=== PATIENT | female | born 1945 | race Caucasian/White ===

== ENCOUNTER 2016-11-02 08:21 | Day surgery (SDC) | payer MEDICARE, OTHER ==
[2016-11-02] MEDS ORDERED: LIDOCAINE 2% MDV (20MG/ML) 20ML VIAL IV ONE (14:00)
[2016-11-02] MEDS ORDERED: PROPOFOL 10 MG/ML VIAL IV ONE (14:00)
[2016-11-02] MEDS ORDERED: MIDAZOLAM HCL 2MG/2ML VIAL IV ONE (14:00)
--- NOTE | 2016-11-03 17:08 | Operative Note ---
DATE OF SURGERY: 11/02/2016 OPERATION: COLONOSCOPY with cold forceps polypectomy. PREOPERATIVE DIAGNOSIS: Screening. POSTOPERATIVE DIAGNOSES: 1. Transverse colon polyp. 2. Sigmoid diverticulosis. PROCEDURE: After informed consent was obtained from the patient, she was placed in the left lateral decubitus position in the endoscopy suite, sedated and monitored by the department of anesthesia. Digital rectal exam was unremarkable. A well-lubricated [id number] colonoscope was inserted into the rectum and advanced through a moderately to severely tortuous sigmoid colon with [id number] diverticular changes. The endoscope was advanced to the cecum. Preparation quality was good. The cecum, ileocecal valve, appendiceal orifice, and ascending colon were unremarkable. In the distal transverse colon there was a thinly pedunculated polyp which was removed in piecemeal fashion with a cold forceps. Minimal bleeding was noted at the site. The remainder of the transverse colon and descending colon were unremarkable. In the sigmoid colon, there were diverticular changes noted. No polyps, mass lesions, or inflammation was seen. The rectum was unremarkable in forward and in J-turn views. The endoscope was straightened, the rectal ampulla deflated, and the endoscope was removed. ESTIMATED BLOOD LOSS: Minimal. SPECIMENS: Transverse colon polyp. RECOMMENDATIONS: The patient should follow a high-fiber diet and use a fiber supplement such as Citrucel or Benefiber. In addition, I would recommend an upper endoscopy be performed given her chronic significant acid reflux, especially in light of the fact that she has what sounds like maybe nocturnal aspiration symptoms. This will be scheduled in the near future. As always, thank you for allowing me to participate in the healthcare of your patients. CC: Dr. Hardeep PRABHAKAR
== END 2016-11-02 10:57 | disposition home or self-care (01) ==
LOC: HOP 08:21
PROVIDERS: ATTEND Internal Medicine Gastroenterology
DX: Z12.11 Encounter for screening for malignant neoplasm of colon (principal); K63.5 Polyp of colon; K57.30 Diverticulosis of large intestine without perforation or abscess without bleeding; E03.9 Hypothyroidism, unspecified

== ENCOUNTER 2016-11-30 10:40 | Day surgery (SDC) | payer MEDICARE, OTHER ==
[2016-11-30] MEDS ORDERED: LIDOCAINE 2% MDV (20MG/ML) 20ML VIAL IV ONE (14:00)
[2016-11-30] MEDS ORDERED: PROPOFOL 10 MG/ML VIAL IV ONE (14:00)
[2016-11-30] MEDS ORDERED: FENTANYL PF 100MCG/2ML VIAL IV ONE (14:00)
--- NOTE | 2016-12-04 09:45 | Operative Note ---
DATE OF SURGERY: 11/30/2016 Surgeon: Luis Lundberg DO Referring physician: Hardeep Lauren DO PREOPERATIVE DIAGNOSIS: Chronic heartburn symptoms and questionable nocturnal aspiration. POSTOPERATIVE DIAGNOSES: 1. Ulcerative esophagitis. 2. Hiatal hernia. OPERATION: EGD WITH BIOPSY PROCEDURE: After informed consent was obtained with the patient, she was placed in the left lateral decubitus position in the endoscopy suite, sedated and monitored by the Department of Anesthesia. A well-lubricated GIF 180 gastroscope was placed in the posterior oropharynx under direct visualization past the proximal esophagus. The endoscope was advanced to the proximal, mid, and distal esophagus. The GE junction demonstrated ulcerative changes and irregularity of the tissue at the squamocolumnar border. There were four folds at least involved with the ulcerative changes. There was no obvious mass, but there was some edema and narrowing. The remainder of the esophagus was unremarkable. A small hiatal hernia was noted subdiaphragmatic. The stomach demonstrated normal distensibility, normal rugal folds. ____antrum pylorus, as well as the duodenal bulb and sweep were unremarkable. J-turn views of the proximal stomach revealed a small hiatal hernia, but no other abnormalities. The endoscope was straightened. Biopsies were obtained from the GE junction, in particular in the area of the ulcerated mucosa. There was a small amount of oozing that occurred. The area was rinsed, fluid evacuated, blood evacuated. There was no persistent bleeding noted. The remainder of the esophagus was unremarkable. RECOMMENDATIONS: The patient should be on a twice a day PPI. I will repeat her upper endoscopy in 8 weeks to assess healing and will await tissue histology of tissue obtained, in particular, need to exclude the possibility of occult malignant tissue. As always, thank you for allowing me to participate in the care of your patient. CC: Dr. Luis PRABHAKAR
== END 2016-11-30 12:02 | disposition home or self-care (01) ==
LOC: HOP 10:40
PROVIDERS: ATTEND Internal Medicine Gastroenterology
DX: K22.70 Barrett's esophagus without dysplasia (principal); K21.9 Gastro-esophageal reflux disease without esophagitis; K22.10 Ulcer of esophagus without bleeding; K44.9 Diaphragmatic hernia without obstruction or gangrene; E78.00 Pure hypercholesterolemia, unspecified; E03.9 Hypothyroidism, unspecified

== ENCOUNTER 2017-02-01 08:10 | Day surgery (SDC) | payer MEDICARE, OTHER ==
[2017-02-01] MEDS ORDERED: MIDAZOLAM HCL 2MG/2ML VIAL IV ONE (14:00)
[2017-02-01] MEDS ORDERED: PROPOFOL 10 MG/ML VIAL IV ONE (14:00)
[2017-02-01] MEDS ORDERED: LIDOCAINE 2% MDV (20MG/ML) 20ML VIAL IV ONE (14:00)
--- NOTE | 2017-02-07 13:20 | Operative Note ---
DATE OF SURGERY: 02/01/2017 OPERATION: ESOPHAGOGASTRODUODENOSCOPY with photo. PREOPERATIVE DIAGNOSIS: Ulcerative esophagitis and Slaughter's. POSTOPERATIVE DIAGNOSES: 1. Slaughter's with resolved ulcerative changes. 2. Small hiatal hernia. PROCEDURE: After informed consent was obtained from the patient, she was placed in the left lateral decubitus position in the endoscopy suite, sedated and monitored by the department of anesthesia. A well-lubricated [id number] gastroscope was placed in the posterior oropharynx and under direct visualization passed to the proximal esophagus. The endoscope was advanced through the proximal, mid, and distal esophagus. The GE junction was irregular. No ulcers, erosions, strictures, varices, or mass lesions were seen. There was a small hiatal hernia. The remainder of the esophagus, gastric body, antrum, pylorus, duodenal bulb and sweep were unremarkable. J-turn views of the proximal stomach revealed a small hiatal hernia. No other abnormalities were identified. The endoscope was straightened and retracted back to the GE junction where again a small hiatal hernia was noted. The squamocolumnar border was irregular consistent with the prior findings of Slaughter's. The ulcerative changes which had been previously identified on her last endoscopy have resolved. The endoscope was then retracted through the remainder of the esophagus with no new abnormalities or irregularities identified. RECOMMENDATIONS: The patient can reduce her PPI to once daily. In addition, I will examine her left ear, as she appears to have pain and symptoms suggestive of perhaps a middle ear infection. As always, thank you for allowing me to participate in the healthcare of your patients. CC: Dr. Hardeep PRABHAKAR
== END 2017-02-01 11:10 | disposition home or self-care (01) ==
LOC: HOP 08:10
PROVIDERS: ATTEND Internal Medicine Gastroenterology
DX: K22.10 Ulcer of esophagus without bleeding (principal); K44.9 Diaphragmatic hernia without obstruction or gangrene; E03.9 Hypothyroidism, unspecified

== ENCOUNTER 2017-03-06 12:53 | Day surgery (SDC) | payer MEDICARE, OTHER ==
--- NOTE | 2017-03-08 11:00 | Operative Note ---
DATE OF SURGERY: 03/06/2017 PREOPERATIVE DIAGNOSIS: Hematuria. POSTOPERATIVE DIAGNOSIS: Hematuria. OPERATION: Cystoscopy. Indication: A 71-year-old female who presents for cystoscopic to complete her hematuria evaluation. PROCEDURE: Preop informed consent was obtained. Antibiotics were given. The patient was brought to the procedure room at [facility], placed in frog-leg position. The genitalia prepped and draped sterilely. Immediately seen, the patient has complete prolapse of the bladder with cystocele. The bladder was entered with the scope. No abnormalities mucosally were seen, and the ureteral orifices had normal appearance. The scope was then withdrawn. The procedure was terminated. The patient tolerated the procedure well. PLAN: The patient's workup is complete. No other significant abnormality was seen except for the cystocele, which she has been fully aware of. Does not desire treatment for and will follow up as needed in the future. CC: Dr. Hardeep PRABHAKAR
== END 2017-03-06 13:45 | disposition home or self-care (01) ==
LOC: HOP 12:53
PROVIDERS: ATTEND Urology
DX: R31.9 Hematuria, unspecified (principal); N81.10 Cystocele, unspecified
CPT/HCPCS: 76775

== ENCOUNTER 2017-08-10 12:07 | Emergency (ER) | payer MEDICARE, OTHER ==
--- NOTE | 2017-08-10 12:34 | Emergency Department Record ---
History of Present Illness - General Chief complaint: ENT Stated complaint: LT EAR PAIN Time Seen by Provider: 08/10/17 12:18 Source: Patient Mode of Arrival: Ambulatory Limitations: No limitations - History of Present Illness Initial comments: The patient is here due to L ear pain for 4 hours. She denies any cough, ST, runny nose or ear drainage. There is no hx of ear perforations or injuries. MD complaint: Ear pain Onset/Timin -: Hour(s) Location: L ear Severity: Moderate Severity scale (1-10): 5 Quality: Sharp, Stabbing Consistency: Constant Improves with: None Worsens with: Other Associated Symptoms: Other - Related Data Previous Rx's Medication Instructions Recorded Neomycin/Polymyxin B Sulf/Hc 3 drop AFFEAR QID #10 ml 08/10/17 [Cortisporin Otic] Allergies Allergy/AdvReac Type Severity Reaction Status Date / Time codeine Allergy ALTERED Verified 02/08/17 09:18 MENTAL STATUS Travel Screening - Travel/Exposure Within Last 30 Days Have you traveled within the last 30 days?: No - Travel/Exposure Within Last Year Have you traveled outside the [place] in the last year?: No - Additonal Travel Details Have you been exposed to anyone with a communicable illness?: No - Travel Symptoms Symptom Screening: None Review of Systems Constitutional: Denies: Chills, Fever Past Medical History - SOCIAL HISTORY Smoking Status: Never smoker Alcohol Use: None Drug Use: None - RESPIRATORY Hx Respiratory Disorders: No - CARDIOVASCULAR Hx Cardio Disorders: No - NEURO Hx Neuro Disorders: No - GI Hx GI Disorders: Yes Hx Reflux: Yes Hx Ulcer: Yes Hx of Polyps: Yes Comment:: barretts esophagus. - Hx Genitourinary Disorders: No - ENDOCRINE Hx Endocrine Disorders: Yes Hx Thyroid Disease: Yes - MUSCULOSKELETAL Hx Musculoskeletal Disorders: Yes Hx Arthritis: Yes - PSYCH Hx Psych Problems: No - HEMATOLOGY/ONCOLOGY Hx Hematology/Oncology Disorders: Yes Hx Cancer: Yes (melanoma-back) Hx Chemotherapy: No Hx Radiation Therapy: No Family Medical History Any Significant Family History?: Yes Hx Cancer: Grandparents Hx Heart Disease: Mother Hx HTN: Mother Physical Exam - General General Appearance: Alert, Cooperative, No acute distress - Head Head exam: Atraumatic, Normocephalic, Normal inspection - Eye Eye exam: Normal appearance, PERRL, EOMI - ENT ENT exam: Normal orophraynx. negative: Normal exam, TM's normal bilaterally ( The L TM is not visualized.) Ear exam: Normal external inspection, External canal tenderness (The L ear canal has mild erythema with a cerumen plug deep up against the TM.) Nasal Exam: Normal inspection Throat exam: Normal inspection. negative: Tonsillar erythema, Tonsillar exudate - Neck Neck exam: Normal inspection, Full ROM. negative: Lymphadenopathy, Meningismus , Tenderness Course Vital Signs 08/10/17 12:14 Temperature 97.6 F Pulse Rate [ 95 H Pulse Ox Probe] Respiratory 16 Rate Blood Pressure 162/93 [Left Arm] Pulse Ox 95 - Reevaluation(s) Reevaluation #1: I did explain to the patient that she appears to have a plug of cerumen up against the TM with erythema mildly to the canal. She is to use the ear drops and to see her PCP next week for recheck and to possibly have the canal flushed out. 08/10/17 12:43 Disposition Disposition: Discharge Clinical Impression: Otalgia of left ear Disposition: Home, Self-Care Condition: (2) Stable Instructions: Earache (ED) Additional Instructions: Please take Tylenol for pain and use the Cortisporin as directed. Please see Dr. Lauren next week for recheck and to flush the ear out when improved. Return to the ER for any worsening symptoms. Prescriptions: Neomycin/Polymyxin B Sulf/Hc [Cortisporin Otic] 3 drop AFFEAR QID #10 ml Forms: Patient Portal Access Time of Disposition: 12:34 Quality - Quality Measures Quality Measures: N/A - Blood Pressure Screening View Details: Yes Does Patient Have Any of the Following: No, Active Dx of HTN Blood Pressure Classification: Hypertensive Reading Systolic Measurement: 162 Diastolic Measurement: 93 Screening for High Blood Pressure: Patient Exclusion, Hx of HTN [[id number]]
== END 2017-08-10 12:40 | disposition home or self-care (01) ==
LOC: ER 12:07
DX: H92.02 Otalgia, left ear (principal); H61.22 Impacted cerumen, left ear
CPT/HCPCS: 99282

== ENCOUNTER 2018-04-08 05:15 | Emergency (ER) | payer MEDICARE, OTHER ==
[2018-04-08 05:29] LABS: URINE APPEARANCE CLEAR; URINE BILIRUBIN NEGATIVE (NEGATIVE); URINE BLOOD LARGE (NEGATIVE); URINE COLOR RED; URINE GLUCOSE (UA) NEGATIVE (NEGATIVE); URINE KETONE NEGATIVE (NEGATIVE); URINE LEUKOCYTE ESTERASE LARGE (NEGATIVE); URINE NITRITE NEGATIVE (NEGATIVE); URINE UROBILINOGEN 0.2 E.U./dL (0.20 - 1.00)
[2018-04-08 05:36] LABS: URINE BACTERIA 1+; URINE EPITHELIAL CELLS 0 - 2 (FEW); URINE RBC 21 - 35 (NONE SEEN); URINE WBC 21 - 35 (0-2/hpf)
[2018-04-08] MEDS ORDERED: NITROFURANTOIN MONO 100 MG CAPSULE PO ONE (05:42)
[2018-04-08] MEDS ORDERED: PHENAZOPYRIDINE HCL 95 MG TABLET PO ONE (05:45)
--- NOTE | 2018-04-08 05:45 | Emergency Department Record ---
History of Present Illness - General Chief complaint: Female Urogenital Problem Stated complaint: BLOOD IN URINE Time Seen by Provider: 04/08/18 05:37 Source: Patient Mode of Arrival: Ambulatory Limitations: No limitations - History of Present Illness Initial comments: The patient is here due to dysuria for 2 days. She did notice a small amount of blood in the urine today. There has been no fever, chills, AP, vomiting, or back pain. MD Complaint: Dysuria Onset/Timin -: Days(s) Quality: Burning Consistency: Constant Improves with: None Worsens with: None Associated Symptoms: Dysuria, Hematuria - Related Data Home Medications Medication Instructions Recorded Confirmed Last Taken Rosuvastatin Calcium 1 tab PO DAILY 04/08/18 04/08/18 Unknown Previous Rx's Medication Instructions Recorded Nitrofurantoin [place] [Macrobid] 100 mg PO BID #14 capsule 04/08/18 Phenazopyridine HCl [Pyridium] 100 mg PO TID #6 tablet 04/08/18 Allergies Allergy/AdvReac Type Severity Reaction Status Date / Time codeine Allergy ALTERED Verified 04/08/18 05:28 MENTAL STATUS Travel Screening - Travel/Exposure Within Last 30 Days Have you traveled within the last 30 days?: No - Travel/Exposure Within Last Year Have you traveled outside the [place] in the last year?: No - Additonal Travel Details Have you been exposed to anyone with a communicable illness?: No - Travel Symptoms Symptom Screening: None Review of Systems Constitutional: Denies: Chills, Fever Eyes: Denies: Eye discharge ENT: Denies: Congestion Respiratory: Denies: Cough, Dyspnea Cardiovascular: Denies: Chest pain Past Medical History - SOCIAL HISTORY Smoking Status: Never smoker Alcohol Use: Rare Drug Use: None - RESPIRATORY Hx Respiratory Disorders: No - CARDIOVASCULAR Hx Cardio Disorders: No - NEURO Hx Neuro Disorders: No - GI Hx GI Disorders: Yes Hx Reflux: Yes Hx Ulcer: Yes Hx of Polyps: Yes Comment:: barretts esophagus. - Hx Genitourinary Disorders: No - ENDOCRINE Hx Endocrine Disorders: Yes Hx Thyroid Disease: Yes - MUSCULOSKELETAL Hx Musculoskeletal Disorders: Yes Hx Arthritis: Yes - PSYCH Hx Psych Problems: No - HEMATOLOGY/ONCOLOGY Hx Hematology/Oncology Disorders: Yes Hx Cancer: Yes (melanoma-back) Hx Chemotherapy: No Hx Radiation Therapy: No Family Medical History Any Significant Family History?: No Hx Cancer: Grandparents Hx Heart Disease: Mother Hx HTN: Mother Physical Exam - General General Appearance: Alert, Oriented x3, Cooperative, No acute distress - Head Head exam: Atraumatic, Normocephalic, Normal inspection - Eye Eye exam: Normal appearance, PERRL - Neck Neck exam: Normal inspection, Full ROM. negative: Tenderness - Respiratory Respiratory exam: Normal lung sounds bilaterally. negative: Respiratory distress - Cardiovascular Cardiovascular Exam: Regular rate, Normal rhythm, Normal heart sounds - GI/Abdominal GI/Abdominal exam: Soft, Normal bowel sounds. negative: Rigid, Tenderness - Extremities Extremities exam: Normal inspection, Full ROM, Normal capillary refill. negative: Tenderness - Back Back exam: Denies: CVA tenderness (R), CVA tenderness (L) - Neurological Neurological exam: Alert, Normal gait. negative: Abnormal gait, Motor sensory deficit Course Vital Signs 04/08/18 05:25 Temperature 97.9 F Pulse Rate [ 80 Pulse Ox Probe] Respiratory 24 Rate Blood Pressure 146/99 [Left Arm] Pulse Ox 98 - Reevaluation(s) Reevaluation #1: I did discuss the need to F/U with her PCP to make sure the infection and bleeding resolve. 04/08/18 05:48 Medical Decision Making - Lab Data Lab Results 04/08/18 Range/Units 05:30 Urine Color Red H Urine Appearance Clear Urine pH 6.5 (5.0-8.0) Ur Specific [place] 1.010 (1.002-1.030) Urine Protein 100 mg/dl H (NEGATIVE) Urine Glucose (UA) Negative (NEGATIVE) Urine Ketones Negative (NEGATIVE) Urine Blood Large H (NEGATIVE) Urine Nitrite Negative (NEGATIVE) Urine Bilirubin Negative (NEGATIVE) Urine Urobilinogen 0.2 (0.20 - 1.00) E.U./dL Ur Leukocyte Esterase Large H (NEGATIVE) Urine RBC 21 - 35 (NONE SEEN) Urine WBC 21 - 35 (0-2/hpf) Ur Epithelial Cells 0 - 2 (FEW) Urine Bacteria 1+ Disposition Disposition: Discharge Clinical Impression: UTI (urinary tract infection) Qualifiers: Urinary tract infection type: acute cystitis Hematuria presence: with hematuria Qualified Code(s): N30.01 - Acute cystitis with hematuria Disposition: Home, Self-Care Condition: (2) Stable Instructions: Urinary Tract Infection in Women (ED) Additional Instructions: Please drink plenty of fluids and take the Macrobid as directed. Please see your family doctor for recheck later this week to be sure the infection and blood in the urine is resolving. Please return to the ER for any worsening symptoms like pain, fever, or vomiting. Prescriptions: Nitrofurantoin [place] [Macrobid] 100 mg PO BID #14 capsule Phenazopyridine HCl [Pyridium] 100 mg PO TID #6 tablet Forms: Patient Portal Access Time of Disposition: 05:44 Quality - Quality Measures Quality Measures: N/A - Blood Pressure Screening View Details: Yes Does Patient Have Any of the Following: No Blood Pressure Classification: Hypertensive Reading Systolic Measurement: 146 Diastolic Measurement: 99 Screening for High Blood Pressure: < First Hypertensive BP, F/U Documented > [ [id number]] First Hypertensive Follow-up Interventions: Referral to alternative/primary care provider.
== END 2018-04-08 05:54 | disposition home or self-care (01) ==
LOC: ER 05:15
DX: N30.01 Acute cystitis with hematuria (principal); R30.0 Dysuria
CPT/HCPCS: 81001; 99282